=== PATIENT | female | born 1950 | race Caucasian/White ===

== ENCOUNTER → 2023-03-06 10:04 | Outpatient (CLI) | payer OTHER, SELFPAY ==
--- NOTE | ~2023-03-06 | MR_ITS ---
EXAMINATION: MR brain/brain stem wo/w con DATE: 03/06/2023 11:26 INDICATION: Loco's palsy TECHNIQUE: Magnetic resonance imaging (MRI) of the brain and brainstem was performed without and with 15 mL Multihance intravenous contrast. Sequences included sagittal and axial T1-weighted SE, axial d iffusion-weighted FS SE, axial T2*-weighted GRE, axial 3D SWAN, axial T2-weighted FLAIR, and axial T2 -weighted FSE. Postcontrast axial and coronal T1-weighted SE was obtained. Apparent diffusion coeffic ient (ADC) maps were created. COMPARISON: None. FINDINGS: There are no areas of restricted diffusion to suggest acute infarction. No intracranial hemorrhage or abnormal intracranial mass lesion. Minimal scattered areas of nonspecific increased T2-weighted sign al intensity in the cerebral white matter, predominantly involving the deep and periventricular white matter which is within normal limits for age. There are no intraparenchymal signal abnormalities see n on the other pulse sequences. The ventricles are symmetric and normal in size. No abnormal mass at the cerebral pontine angles or internal auditory canals. No asymmetric abnormal or enhancement identi fied along the course of the bilateral facial nerves. There are no abnormal extra-axial fluid collect ions. Flow voids are seen in the cerebral arteries on the T2-weighted sequences consistent with their expected patency. No abnormal parotid lesions. Changes of bilateral intraocular lens replacement. V isualized orbits and soft tissues are unremarkable. Mild mucoperiosteal thickening the bilateral ethm oid sinuses. There are no areas of abnormal enhancement on the post contrast images. IMPRESSION: 1. Normal aging brain. No abnormal masses or abnormal enhancement along the course of the bilateral f acial nerves. Reviewed, dictated and finalized at location A. IMPRESSION: 1. Normal aging brain. No abnormal masses or abnormal enhancement along the cou rse of the bilateral facial nerves.
== END ==
PROVIDERS: PCP Student in an Organized Health Care Education/Training Program; Visit Provider Physician Assistant
DX: G51.0 Bell's palsy (principal)
CPT/HCPCS: 70553; A9577